=== PATIENT | female | born 1975 | race Hispanic/Latino ===

== ENCOUNTER 2019-09-21 07:59 | Outpatient (CLI) | payer BC ==
--- NOTE | 2019-09-21 11:00 | ULT ---
ULTRASOUND GREATER THAN 14 WEEKS COMPLETE: Date: 09/21/2019 HISTORY: Maternal diabetes Type II. FINDINGS: Single viable intrauterine fetus is noted in maternal right transverse lie. Placenta is anterior. Fet al heart rate is 143 bpm. Cervical length 3.8. Amniotic fluid index 22.5 cm. Visualized brain, 4 chamber heart, 3 vessel cord, stomach, bladder, kidneys, spine, and extremi ty regions are unremarkable. Biometry: BPD: 5.2 cm - 21 weeks/5 days HC: 19l.6 cm - 21 weeks/6 days AC: 17.0 cm - 22 weeks/0 days FL: 3.8 cm - 22 weeks/2 days IMPRESSION: 1. Single, viable intrauterine fetus of 22 weeks and 0 days. 2. DONNELL 01/25/2020. 3. Estimated weight 471 gm. 4. size is approximately 1 week greater than by dates. 5. Amniotic fluid index 22.5 cm. 6. Continue short-term follow-up imaging. POS: [facility]
== END 2019-09-21 08:00 | disposition home or self-care (01) ==
LOC: BICULT 07:59
PROVIDERS: ATTEND Family Medicine
DX: O24.112 Pre-existing type 2 diabetes mellitus, in pregnancy, second trimester (principal); Z3A.22 22 weeks gestation of pregnancy
CPT/HCPCS: 76805

== ENCOUNTER 2019-12-26 11:19 | Observation (INO) | payer BC ==
[2019-12-26 11:56] VITALS: BMI 29.6
--- NOTE | 2019-12-26 13:06 | ULT ---
ULTRASOUND BIOPHYSICAL PROFILE: DATE: 12/26/2019 HISTORY: 44-year-old female with maternal diabetes FINDINGS: breathin tone: 2 movement: 2 Amniotic fluid volume: 2 heart rate: 132 bpm Placenta: Anterior. STEPHANIE: 19.5 cm lie: Transverse IMPRESSION: Normal biophysical profile score of 8 out of 8, excluding the nonstress test.
[2019-12-26] MEDS ORDERED: hydrALAZINE 20 MG/ML VIAL SLOW IVP PRN (13:38)
[2019-12-26] MEDS ORDERED: Ondansetron PF 4 MG/2 ML Vial IVP PRN (13:38)
[2019-12-26] MEDS ORDERED: HumaLOG 300 UNITS/3 ML VIAL SC SCH ×4 (14:00→22:15)
[2019-12-26 14:24] LABS: Hemoglobin 11.6 g/dL (12.0-16.0); Mean Corpuscular Hemoglobin 26.6 pg (27.0-31.0); Mean Corpuscular Volume 80.4 fL (78.0-98.0); Mean Platelet Volume 8.6 fL (7.4-10.4); Platelet Count 251 thou/uL (130-400); RBC Distribution Width 13.9 % (11.5-14.5); Red Blood Cell (RBC) Count 4.37 mill/uL (4.20-5.40); White Blood Cell (WBC) Count 8.6 thou/uL (4.8-10.8)
[2019-12-26] MEDS: Betamet Acet/Betamet Na Ph 30 MG/5 ML VIAL IM SCH (14:40)
[2019-12-26 15:02] LABS: ALT (SGPT) 14 U/L (8-55); AST (SGOT) 19 U/L (5-34); Albumin 2.9 g/dL (3.5-5.0); Alkaline Phosphatase 250 U/L (40-110); Anion Gap 12 mmol/L (10-20); BUN (Urea Nitrogen) 11 mg/dL (7.0-18.7); Bilirubin, Total 0.5 mg/dL (0.2-1.2); Calc. Creatinine Clearance 133 mL/min (70-130); Calcium 8.4 mg/dL (7.8-10.44); Carbon Dioxide 19 mmol/L (22-29); Chloride 108 mmol/L (98-107); Estimated GFR-MDRD Greater than 90; Globulin 3.7 g/dL (2.4-3.5); Glucose 84 mg/dL (70-105); Potassium 4.1 mmol/L (3.5-5.1); Protein, Total 6.6 g/dL (6.0-8.3); Sodium 135 mmol/L (136-145)
[2019-12-26] MEDS: Acetaminophen 500 MG TAB PO PRN (19:28)
[2019-12-26] MEDS: HumaLOG 300 UNITS/3 ML VIAL SC SCH (19:29)
[2019-12-26] MEDS ORDERED: Insulin Glargine 10 UNITS in Pre-Filled Syringe SC SCH (21:00)
[2019-12-27] MEDS: HumaLOG 300 UNITS/3 ML VIAL SC SCH ×3 (07:31→13:55)
[2019-12-27 09:06] VITALS: TEMP 97.8
[2019-12-27] MEDS: Acetaminophen 500 MG TAB PO PRN (10:49)
[2019-12-27 12:36] VITALS: BP 137/58
[2019-12-27] MEDS: Betamet Acet/Betamet Na Ph 30 MG/5 ML VIAL IM SCH (13:34)
--- NOTE | 2019-12-28 13:38 | SS ---
DATE OF ADMISSION: 12/26/2019 DATE OF DISCHARGE: 12/27/2019 HISTORY OF PRESENT ILLNESS: This is a 44-year-old female G9, P4, at 35.3 weeks estimated gestational age, complicated by advanced maternal age, pre-existing type 2 diabetes mellitus on insulin class A on insulin, and new onset elevated blood pressures, discovered in the office on a routine visit. She was sent to Labor and Delivery for observations in light of her risk factors. PAST MEDICAL HISTORY: Type 2 diabetes mellitus, she takes the combination of Levemir twice daily and NovoLog insulin with meals, currently 10 units before meals. to this point has been uneventful. SOCIAL HISTORY: She is . She denies tobacco, alcohol, or drugs. FAMILY HISTORY: Significant for hypertension and diabetes in multiple relatives. PHYSICAL EXAMINATION: VITAL SIGNS: Blood pressure 150/90, other vital signs are stable. Afebrile. ENT: Unremarkable. LUNGS: Clear. HEART: Regular rate and rhythm. ABDOMEN: Soft and gravid. VAGINAL: Deferred. heart tones 140, moderate variability, accelerations present, no decelerations, no contractions. ASSESSMENT AND PLAN: Gestational hypertension. HOSPITAL COURSE: Sabi was admitted to Labor and Delivery, she was observed for 23 hours. Biophysical profile was 8/8. Electronic monitoring showed reassuring tones overnight. Blood pressures were stable on bedrest, improving to 120s to 130s/80s on bedrest. LABORATORY DATA: Showed normal LFTs, normal CBC, no protein in her urine. She received celestone x2 and she was discharged in good condition on 12/27/19. DISCHARGE INSTRUCTIONS: Activity, modified bedrest. Medications, none/current home medications only. Follow up 2 days in the office for a nonstress test. Job ID: [id number]
== END 2019-12-27 16:00 | disposition home health service (06) ==
LOC: L&D/OP 11:19 → L&D 13:39
PROVIDERS: ADMIT Family Medicine; ATTEND Family Medicine
DX: O24.113 Pre-existing type 2 diabetes mellitus, in pregnancy, third trimester (principal); E11.9 Type 2 diabetes mellitus without complications; O13.3 Gestational [pregnancy-induced] hypertension without significant proteinuria, third trimester; O09.523 Supervision of elderly multigravida, third trimester; Z3A.35 35 weeks gestation of pregnancy; Z79.4 Long term (current) use of insulin
CPT/HCPCS: 36415; 36416; 76819; 80053; 85027; 96372; 99285; G0378; J0702; J1815

== ENCOUNTER 2020-01-02 14:38 | Day surgery (SDC) | payer BC ==
[2020-01-02] MEDS ORDERED: hydrALAZINE 20 MG/ML VIAL SLOW IVP PRN (14:55)
[2020-01-02 15:14] VITALS: BP 131/84; TEMP 98.8; BMI 39.4
--- NOTE | 2020-01-02 15:43 | ULT ---
ULTRASOUND BIOPHYSICAL PROFILE: HISTORY: distress FINDINGS: A single live intrauterine gestation is seen. heart rate:168bpm STEPHANIE: 11.5 cm Placenta: Anterior without placenta previa OB biophysical profile: tone: 2 breathin movements: 2 Amniotic fluid: 2 The peak systolic velocities in the umbilical artery measures 65 cm/s, 62 cm/s and 25 cm/s with S-D r atios of 1.97, 1.87 and 1.41 respectively. IMPRESSION: The ultrasound biophysical profile score is 8 out of 8.
--- NOTE | 2020-01-02 16:08 | PDOC.LDHP ---
Labor and Delivery H&P Chief complaint: other (Sent from office) HPI: 44 y/o at 36w0d, patient of Dr. Lee, presents from office after a non- reassuring NST. Baseline reportedly 170-180s in clinic and sent for prolonged NST, BPP, and dopplers. Denies pain, VB, LOF, or other concerns. +FM. ROS neg for HEENT, CV, pulm, GI, , neuro, psych, skin, musculoskeletal, or constitutional symptoms other than mentioned above. OB History Details: 4 prior terms SVDs 4 SABs Current complications: pregestational diabetes, gestational hypertension Current medications: pre- vitamins, other (Levemir 10qAM/15 qPM, Novolog 10 qAC, Metformin 500mg BID) Previous surgical history: dilation and curettage Allergies/Adverse Reactions: Allergies Allergy/AdvReac Type Severity Reaction Status Date / Time No Known Allergies Allergy Verified 10/09/19 04:56 Social history: none - Physical Exam Vital signs reviewed and normal: yes General: NAD, resting Lungs: nonlabored breathing Abdomen: gravid Extremeties: no edema FHT: category 2 (160s, mod variability,+ accels, no decels) [place] contractions every: None - Assessment 44 y/o at 36w0d with BPP 02/24, NST with baseline returned to normal after prolonged monitoring. UA dopplers wnl. - Plan -: D/c home with precautions. Will return on for repeat NST/BPP.
== END 2020-01-02 17:25 ==
LOC: L&D/OP 14:38
PROVIDERS: ATTEND Family Medicine
DX: O36.8330 Maternal care for abnormalities of the fetal heart rate or rhythm, third trimester, not applicable or unspecified (principal); O24.414 Gestational diabetes mellitus in pregnancy, insulin controlled; O13.3 Gestational [pregnancy-induced] hypertension without significant proteinuria, third trimester; O09.523 Supervision of elderly multigravida, third trimester; Z3A.36 36 weeks gestation of pregnancy; Z79.4 Long term (current) use of insulin
CPT/HCPCS: 76819; 93975

== ENCOUNTER 2020-01-05 14:30 | Inpatient (IN) | payer BC, OTHER ==
--- NOTE | 2020-01-05 15:38 | ULT ---
US BIOPHYSICAL PROFILE AND UMBILICAL ARTERY ULTRASOUND: 01/05/2020 2:59 PM CLINICAL HISTORY: Size small for dates. COMPARISON: 01/02/2020 FINDINGS: heart rate: 136 bpm. STEPHANIE: 5.2 cm Biophysical profile: 8 of 8 An umbilical artery ultrasound was performed showing persistent diastolic flow within the umbilical a rteries and normal systolic to diastolic ratios. IMPRESSION: 1. Normal biophysical profile 2. Normal umbilical artery ultrasound
[2020-01-05 16:02] VITALS: BMI 38.4
[2020-01-05] MEDS ORDERED: Acetaminophen 500 MG TAB PO PRN (16:57)
[2020-01-05] MEDS ORDERED: Promethazine HCl 25 MG/ML VIAL IM PRN (16:57)
[2020-01-05] MEDS ORDERED: hydrALAZINE 20 MG/ML VIAL SLOW IVP PRN (16:57)
[2020-01-05] MEDS ORDERED: Ondansetron PF 4 MG/2 ML Vial IVP PRN (16:57)
[2020-01-05] MEDS ORDERED: HumaLOG 300 UNITS/3 ML VIAL SC SCH (17:00)
[2020-01-05] MEDS: Lactated Ringer's 1,000 ML IV SCH ×2 (17:26→21:35)
[2020-01-05] MEDS ORDERED: Insulin Glargine 12 UNITS in Pre-Filled Syringe 1 EACH SC SCH (21:00)
[2020-01-06] MEDS: Lactated Ringer's 1,000 ML IV SCH (05:52)
[2020-01-06] MEDS ORDERED: Dextrose 5%-Lactated Ringers 1,000 ML IV SCH (06:30)
[2020-01-06 07:41] LABS: Hemoglobin 12.9 g/dL (12.0-16.0); Mean Corpuscular HGB CONC 32.3 g/dL (32.0-36.0); Mean Corpuscular Hemoglobin 26.6 pg (27.0-31.0); Mean Corpuscular Volume 82.3 fL (78.0-98.0); Mean Platelet Volume 9.6 fL (7.4-10.4); Platelet Count 190 thou/uL (130-400); RBC Distribution Width 14.6 % (11.5-14.5); Red Blood Cell (RBC) Count 4.86 mill/uL (4.20-5.40); White Blood Cell (WBC) Count 6.8 thou/uL (4.8-10.8)
[2020-01-06 07:53] LABS: ALT (SGPT) 45 U/L (8-55); AST (SGOT) 61 U/L (5-34); Albumin 3.1 g/dL (3.5-5.0); Alkaline Phosphatase 357 U/L (40-110); Anion Gap 20 mmol/L (10-20); BUN (Urea Nitrogen) 15 mg/dL (7.0-18.7); Bilirubin, Total 0.4 mg/dL (0.2-1.2); Calc. Creatinine Clearance 96 mL/min (70-130); Carbon Dioxide 17 mmol/L (22-29); Chloride 106 mmol/L (98-107); Estimated GFR-MDRD 63; Globulin 3.4 g/dL (2.4-3.5); Protein, Total 6.5 g/dL (6.0-8.3); Sodium 138 mmol/L (136-145)
[2020-01-06 07:56] LABS: Glucose 32 mg/dL (70-105)
[2020-01-06 08:10] LABS: HBSAg Index 0.14 S/CO (0-0.99); Hep B Surf Ag Non-Reactive S/CO (NonReactive)
[2020-01-06 08:11] LABS: Syphilis Antibody Nonreactive (Nonreactive); Syphilis Antibody Index 0.18 S/CO (<1.00 Non-Reactive)
--- NOTE | 2020-01-06 14:27 | ULT ---
US BIOPHYSICAL PROFILE AND UMBILICAL ARTERY ULTRASOUND: 01/05/2020 2:59 PM CLINICAL HISTORY: Size small for dates. COMPARISON: 01/02/2020 FINDINGS: heart rate: 136 bpm. STEPHANIE: 5.2 cm Biophysical profile: 8 of 8 An umbilical artery ultrasound was performed showing persistent diastolic flow within the umbilical a rteries and normal systolic to diastolic ratios. IMPRESSION: 1. Normal biophysical profile 2. Normal umbilical artery ultrasound Transcribed Date/Time: 01/06/2020 2:26 PM
--- NOTE | 2020-01-14 22:29 | HP ---
HISTORY OF PRESENT ILLNESS: This is a 44-year-old female, G9, P4, at 36 weeks 4 days estimated gestational age with a final EDC of 01/30/2020, who presented to Labor and Delivery today for routine biophysical profile and monitoring for her multiple complications, which include advanced maternal age, pregestational type 2 diabetes mellitus, gestational hypertension. During the ultrasounds, she was noted to have an STEPHANIE of 5.2 and borderline oligohydramnios. She was also noted to be in breech presentation. A nonstress test at that time was also performed and was reassuring. She was given the options of proceeding with a on the day of admission or she could attempt p.o. hydration, and if there was an increase in the amniotic fluid level, external cephalic version could be attempted day after admission. If p.o. hydration did not increase, then a on the next day was also presented as a possibility. Since she had given vaginally 4 times, she did not want to proceed with an immediate and elected to proceed with hydration overnight and followup ultrasound next day. complications as noted above, advanced maternal age. She is a type 2 pregestational diabetic who is on scheduled Levemir b.i.d. and NovoLog with each meal. She has recently diagnosed a week ago with gestational hypertension. She is also GBS positive. PAST MEDICAL HISTORY: Type 2 diabetes mellitus. Previous to she was untreated. PAST SURGICAL HISTORY: No previous surgeries. FAMILY HISTORY: Significant for type 2 diabetes in multiple relatives. CURRENT MEDICATIONS: 1. vitamins. 2. Iron. 3. Levemir 10 units b.i.d. 4. NovoLog 10 to 12 units q.a.c. ALLERGIES: SHE HAS NO KNOWN DRUG ALLERGIES. SOCIAL HISTORY: She denies tobacco, alcohol, or drugs. PHYSICAL EXAMINATION: VITAL SIGNS: On admission, normal blood pressure on bed rest. Her other vital signs were stable. She was afebrile. ENT: Unremarkable. HEART AND LUNGS: Clear. Reflexes were 1+ bilaterally. heart tones at a baseline of 140 with moderate variability. Accelerations were present and no decelerations were seen. HOSPITAL COURSE: Ms. Daniels was admitted to Labor and Delivery. Routine admission labs were ordered. She was began on IV rehydration. Her BPP was 8/8. Her NST added to it 10/10. The next day, I performed a bedside ultrasound, which revealed the in cephalic presentation and an STEPHANIE of 10.2, much improved. Since she was scheduled for induction of labor in 3 days at 37 weeks, the decision was made to allow her to go home on bed rest and return in 2 days for cervical ripening and induction of labor. Job ID: [id number]
== END 2020-01-06 13:14 | disposition home or self-care (01) | DRG 832 ==
LOC: L&D/OP 14:30 → L&D 16:57
PROVIDERS: ADMIT Family Medicine; ATTEND Family Medicine
DX: O24.313 Unspecified pre-existing diabetes mellitus in pregnancy, third trimester (principal); O41.03X0 Oligohydramnios, third trimester, not applicable or unspecified; Z3A.36 36 weeks gestation of pregnancy; O13.3 Gestational [pregnancy-induced] hypertension without significant proteinuria, third trimester; E11.9 Type 2 diabetes mellitus without complications; Z79.4 Long term (current) use of insulin
CPT/HCPCS: 36415; 36416; 59025; 76819; 80053; 85027; 86780; 86850; 86900; 86901; 87340; 87635; 93975; 99283; 99285; J1815; U0003

== ENCOUNTER 2020-01-08 18:00 | Inpatient (IN) | payer BC, OTHER ==
[2020-01-08] MEDS ORDERED: Ondansetron PF 4 MG/2 ML Vial IVP PRN (22:04)
[2020-01-08] MEDS ORDERED: Carboprost 250 MCG/ML AMP IM PRN (22:04)
[2020-01-08] MEDS ORDERED: Misoprostol 200 MCG TAB PR PRN (22:04)
[2020-01-08] MEDS ORDERED: Promethazine HCl 25 MG/ML VIAL IM PRN (22:04)
[2020-01-08] MEDS ORDERED: HYDROcodone/Acetaminophen 5/325 mg Tablet PO PRN (22:04)
[2020-01-08] MEDS ORDERED: Lidocaine 1% (PF) 30 ML VIAL SC PRN (22:04)
[2020-01-08] MEDS ORDERED: Ibuprofen 800 MG TAB PO PRN (22:04)
[2020-01-08] MEDS ORDERED: Butorphanol Tartrate 1 MG/ML VIAL SLOW IVP PRN (22:04)
[2020-01-08] MEDS ORDERED: Diphenoxylate HCl/Atropine Tablet PO PRN (22:04)
[2020-01-08] MEDS ORDERED: hydrALAZINE 20 MG/ML VIAL SLOW IVP PRN (22:04)
[2020-01-08] MEDS ORDERED: NS w/ Oxytocin 10 units 500 ML IV SCH (22:15)
[2020-01-08 22:44] VITALS: BMI 30.5
[2020-01-08 23:12] LABS: Hemoglobin 13.1 g/dL (12.0-16.0); Mean Corpuscular HGB CONC 32.6 g/dL (32.0-36.0); Mean Corpuscular Hemoglobin 25.9 pg (27.0-31.0); Mean Corpuscular Volume 79.6 fL (78.0-98.0); Mean Platelet Volume 10.3 fL (7.4-10.4); Platelet Count 217 thou/uL (130-400); Red Blood Cell (RBC) Count 5.03 mill/uL (4.20-5.40); White Blood Cell (WBC) Count 7.3 thou/uL (4.8-10.8)
[2020-01-08] MEDS ORDERED: Penicillin G Potassium 5 MILL.UNITS VIAL ONE (23:27)
[2020-01-08 23:37] LABS: ALT (SGPT) 120 U/L (8-55); AST (SGOT) 213 U/L (5-34); Albumin 2.7 g/dL (3.5-5.0); Alkaline Phosphatase 376 U/L (40-110); Anion Gap 18 mmol/L (10-20); BUN (Urea Nitrogen) 15 mg/dL (7.0-18.7); Bilirubin, Total 0.5 mg/dL (0.2-1.2); Calc. Creatinine Clearance 69 mL/min (70-130); Calcium 7.7 mg/dL (7.8-10.44); Carbon Dioxide 14 mmol/L (22-29); Chloride 107 mmol/L (98-107); Estimated GFR-MDRD 43; Globulin 4.9 g/dL (2.4-3.5); Glucose 158 mg/dL (70-105); Potassium 5.1 mmol/L (3.5-5.1); Protein, Total 7.6 g/dL (6.0-8.3); Sodium 134 mmol/L (136-145)
[2020-01-08] MEDS: Lactated Ringer's 1,000 ML IV SCH (23:38)
[2020-01-08 23:52] LABS: Syphilis Antibody Nonreactive (Nonreactive); Syphilis Antibody Index 0.18 S/CO (<1.00 Non-Reactive)
[2020-01-09 00:19] LABS: HBSAg Index 0.39 S/CO (0-0.99); Hep B Surf Ag Non-Reactive S/CO (NonReactive)
[2020-01-09] MEDS ORDERED: Misoprostol 100 MCG TAB VAG SCH (02:00)
[2020-01-09] MEDS: Penicillin G 2.5 MILL.units 50 ML ONE ×2 (04:14→09:40)
[2020-01-09] MEDS: NS w/ Oxytocin 10 units 500 ML IV SCH ×2 (05:29→08:33)
[2020-01-09] MEDS ORDERED: Fentanyl 4 mcg/Bup 0.1% Cadd 100 ML ONE (07:24)
[2020-01-09] MEDS ORDERED: Magnesium Sulfate 20 gm/500 ml 20 GM/500 ML BAG ONE ×2 (07:35→15:58)
[2020-01-09] MEDS: Lactated Ringer's 1,000 ML IV SCH (08:33)
[2020-01-09] MEDS ORDERED: Lactated Ringer's 500 ML IV PRN (08:40)
[2020-01-09] MEDS ORDERED: Naloxone HCl 0.4 mg/ml Vial IVP PRN ×2 (08:40)
[2020-01-09] MEDS ORDERED: Promethazine HCl 25 MG/ML VIAL IM PRN ×2 (08:40→16:35)
[2020-01-09] MEDS ORDERED: diphenhydrAMINE 50 MG/ML VIAL IVP PRN (08:40)
[2020-01-09] MEDS ORDERED: EPHEDRINE 25 MG/5 ML SYRINGE SLOW IVP PRN (08:40)
[2020-01-09] MEDS ORDERED: Ondansetron PF 4 MG/2 ML Vial IVP PRN ×2 (08:40→16:35)
[2020-01-09] MEDS ORDERED: Communication Order-Pharmacy FS SCH (08:45)
[2020-01-09] MEDS ORDERED: Fentanyl 4 mcg/Bupivacaine 0.1% Cassette 100 ML EPIDURAL SCH (08:45)
[2020-01-09] MEDS ORDERED: Penicillin G 2.5 MILL.units 50 ML ONE (09:30)
[2020-01-09] MEDS ORDERED: Misoprostol 200 MCG TAB ONE (11:18)
[2020-01-09] MEDS: NS / Oxytocin 40 units/1000ml 1,000 ML IV PRN ×2 (11:46→12:55)
[2020-01-09 12:22] LABS: Base Excess (BEa) -17.1 mEq/L (-2.0 to +3.0)
[2020-01-09 12:24] LABS: Actual Bicarbonate (HCO3v) 15 mEq/L (22-28)
[2020-01-09] MEDS: hydrALAZINE 20 MG/ML VIAL SLOW IVP PRN ×2 (13:07→13:49)
[2020-01-09] MEDS: Acetaminophen 325 MG TAB PO PRN (13:43)
[2020-01-09] MEDS ORDERED: Labetalol HCl 100 MG/20 ML VIAL ONE (14:04)
--- NOTE | 2020-01-09 14:06 | PDOC.EVN ---
Event Note - Event Note Event Note: asked to place order for dr lee 40mg iv x1 for severe pressures. Also asked to evaluate pt for deviating uterus, ppd0 on evaluation fundus is firm at umbulicus and midline. Dr Lee updated 221901/09/20 fsbs 333 lantus 10units x1 humolog 20units x1 ordered at his request.
[2020-01-09] MEDS ORDERED: Lisinopril/Hydrochlorothiazide 10 mg/12.5 mg Tablet PO SCH (16:00)
[2020-01-09] MEDS ORDERED: HYDROcodone/Acetaminophen 5/325 mg Tablet PO PRN ×2 (16:35)
[2020-01-09] MEDS ORDERED: diphenhydrAMINE 25 MG CAP PO PRN (16:35)
[2020-01-09] MEDS ORDERED: Milk Of Magnesia 30 ML UDCUP PO PRN (16:35)
[2020-01-09] MEDS ORDERED: NS / Oxytocin 40 units/1000ml 1,000 ML IV SCH (16:35)
[2020-01-09] MEDS ORDERED: hydrALAZINE 20 MG/ML VIAL SLOW IVP PRN (16:35)
[2020-01-09] MEDS ORDERED: Bisacodyl 10 MG SUPP PR PRN (16:35)
[2020-01-09] MEDS ORDERED: Lanolin Ointment 7 GM TUBE TOP PRN (16:35)
[2020-01-09] MEDS ORDERED: Calcium Gluconate 4.6 MEQ in Sodium Chloride 0.9% 100 ML IVPB PRN (17:57)
[2020-01-09] MEDS ORDERED: Magnesium Sulfate 20 gm/500 ml 20 GM/500 ML BAG IVPB SCH (18:00)
[2020-01-09] MEDS: Ferrous Sulfate 325 MG TAB PO SCH (18:45)
[2020-01-09] MEDS: metFORMIN 500 MG TAB PO SCH (19:51)
[2020-01-09 20:41] LABS: ALT (SGPT) 99 U/L (8-55); AST (SGOT) 123 U/L (5-34); Albumin 2.3 g/dL (3.5-5.0); Alkaline Phosphatase 301 U/L (40-110); Anion Gap 15 mmol/L (10-20); BUN (Urea Nitrogen) 12 mg/dL (7.0-18.7); Bilirubin, Total 0.4 mg/dL (0.2-1.2); Calc. Creatinine Clearance 69 mL/min (70-130); Calcium 6.4 mg/dL (7.8-10.44); Carbon Dioxide 14 mmol/L (22-29); Chloride 104 mmol/L (98-107); Estimated GFR-MDRD 43; Globulin 3.4 g/dL (2.4-3.5); Glucose 265 mg/dL (70-105); Potassium 3.8 mmol/L (3.5-5.1); Protein, Total 5.7 g/dL (6.0-8.3); Sodium 129 mmol/L (136-145)
[2020-01-09] MEDS: Docusate Calcium (SURFAK) 240 MG CAP PO SCH (21:43)
[2020-01-09] MEDS: Ibuprofen 800 MG TAB PO SCH (21:43)
[2020-01-09] MEDS ORDERED: Labetalol 100 MG TAB PO SCH (22:00)
[2020-01-09] MEDS ORDERED: Dextrose 50% Abboject 50 ML SYRINGE IVP PRN (22:23)
[2020-01-09] MEDS ORDERED: Dextrose 5% in Water 1,000 ML IV PRN (22:23)
[2020-01-09] MEDS ORDERED: HumaLOG 300 UNITS/3 ML VIAL SC SCH (22:30)
[2020-01-09] MEDS ORDERED: Insulin Glargine 10 UNITS in Pre-Filled Syringe 1 EACH SC SCH (22:30)
[2020-01-10] MEDS ORDERED: Labetalol 100 MG TAB PO SCH
[2020-01-10 01:04] VITALS: BP 103/55
[2020-01-10 02:10] LABS: Hemoglobin 11.7 g/dL (12.0-16.0); Mean Corpuscular HGB CONC 32.8 g/dL (32.0-36.0); Mean Corpuscular Hemoglobin 26.2 pg (27.0-31.0); Mean Corpuscular Volume 79.8 fL (78.0-98.0); Mean Platelet Volume 9.9 fL (7.4-10.4); Platelet Count 206 thou/uL (130-400); Red Blood Cell (RBC) Count 4.46 mill/uL (4.20-5.40)
[2020-01-10 02:38] LABS: Hemoglobin A1c 7.1 % (4.0-6.0)
[2020-01-10] MEDS: Ibuprofen 800 MG TAB PO SCH ×3 (06:05→21:10)
[2020-01-10] MEDS: Docusate Calcium (SURFAK) 240 MG CAP PO SCH ×2 (08:39→21:10)
[2020-01-10] MEDS: Prenatal Vitamin 1 TAB PO SCH (08:39)
[2020-01-10] MEDS: Ferrous Sulfate 325 MG TAB PO SCH ×2 (08:40→17:19)
[2020-01-10] MEDS: metFORMIN 500 MG TAB PO SCH ×2 (08:40→17:38)
[2020-01-10] MEDS: Lactated Ringer's 1,000 ML IV SCH (10:30)
[2020-01-10 10:52] LABS: #Lymphocytes 2.1 thou/uL (1.20-3.40); #Monocytes 0.3 thou/uL (0.11-0.59); #Neutrophils 8.2 thou/uL (1.40-6.50); %Basophils 0.2 % (0.0-1.0); %Eosinophils 0.3 % (0.0-10.0); %Monocytes 3.1 % (0.0-10.0); %Neutrophils 76.4 % (42.0-75.0); Hemoglobin 11.9 g/dL (12.0-16.0); Mean Corpuscular HGB CONC 32.6 g/dL (32.0-36.0); Mean Corpuscular Hemoglobin 26.2 pg (27.0-31.0); Mean Corpuscular Volume 80.5 fL (78.0-98.0); Mean Platelet Volume 9.4 fL (7.4-10.4); Platelet Count 207 thou/uL (130-400); RBC Distribution Width 14.9 % (11.5-14.5); Red Blood Cell (RBC) Count 4.52 mill/uL (4.20-5.40); White Blood Cell (WBC) Count 10.7 thou/uL (4.8-10.8)
[2020-01-10 11:21] LABS: ALT (SGPT) 88 U/L (8-55); AST (SGOT) 93 U/L (5-34); Albumin 2.4 g/dL (3.5-5.0); Alkaline Phosphatase 287 U/L (40-110); Anion Gap 13 mmol/L (10-20); BUN (Urea Nitrogen) 11 mg/dL (7.0-18.7); Bilirubin, Total 0.3 mg/dL (0.2-1.2); Calc. Creatinine Clearance 82 mL/min (70-130); Calcium 6.4 mg/dL (7.8-10.44); Carbon Dioxide 19 mmol/L (22-29); Chloride 105 mmol/L (98-107); Estimated GFR-MDRD 52; Globulin 3.7 g/dL (2.4-3.5); Glucose 114 mg/dL (70-105); Potassium 4.5 mmol/L (3.5-5.1); Protein, Total 6.1 g/dL (6.0-8.3); Sodium 132 mmol/L (136-145)
[2020-01-10] MEDS ORDERED: HumaLOG 300 UNITS/3 ML VIAL SC SCH (17:00)
[2020-01-10] MEDS ORDERED: Insulin Glargine 10 UNITS in Pre-Filled Syringe 1 EACH SC SCH (21:00)
[2020-01-10 21:28] VITALS: TEMP 97.6
[2020-01-11] MEDS: Ibuprofen 800 MG TAB PO SCH (05:39)
[2020-01-11 07:35] LABS: ALT (SGPT) 70 U/L (8-55); AST (SGOT) 61 U/L (5-34); Albumin 2.5 g/dL (3.5-5.0); Alkaline Phosphatase 273 U/L (40-110); Anion Gap 14 mmol/L (10-20); BUN (Urea Nitrogen) 17 mg/dL (7.0-18.7); Bilirubin, Total 0.3 mg/dL (0.2-1.2); Calc. Creatinine Clearance 91 mL/min (70-130); Calcium 6.7 mg/dL (7.8-10.44); Carbon Dioxide 19 mmol/L (22-29); Chloride 109 mmol/L (98-107); Estimated GFR-MDRD 59; Globulin 3.8 g/dL (2.4-3.5); Glucose 69 mg/dL (70-105); Potassium 4.5 mmol/L (3.5-5.1); Protein, Total 6.3 g/dL (6.0-8.3); Sodium 137 mmol/L (136-145)
[2020-01-11] MEDS: Ferrous Sulfate 325 MG TAB PO SCH (08:08)
[2020-01-11] MEDS: metFORMIN 500 MG TAB PO SCH (08:08)
[2020-01-11] MEDS: Docusate Calcium (SURFAK) 240 MG CAP PO SCH (08:08)
[2020-01-11] MEDS: Prenatal Vitamin 1 TAB PO SCH (08:08)
[2020-01-11] MEDS: Acetaminophen 325 MG TAB PO PRN (08:20)
[2020-01-12 12:16] LABS: SARS-CoV-2 MS2 Positive; SARS-CoV-2 N Gene Positive; SARS-CoV-2 S Gene Positive; SARS-CoV-2 orf1ab Positive
--- NOTE | 2020-01-13 13:24 | DIS ---
DATE OF ADMISSION: 01/08/2020 DATE OF DISCHARGE: 01/11/2020 PRINCIPAL DIAGNOSES: 1. 37 weeks. 2. Advanced maternal age, delivered. 3. Pre-existing type 2 diabetes mellitus. 4. Preeclampsia with severe features. 5. HELLP syndrome, delivered. 6. COVID positive. 7. GBS positive. 8. Shoulder dystocia. PROCEDURES: 1. NST. 2. Ultrasound. 3. Biophysical profile. 4. Umbilical artery Dopplers. INTRAPARTUM PROCEDURES: 1. Spontaneous vaginal delivery. 2. Respiratory isolation. PROCEDURES: Magnesium sulfate x24 hours. COMPLICATIONS: Shoulder dystocia. DISCHARGE INSTRUCTIONS: 1. Activities: As tolerated, recommend quarantine x10 days. 2. Diet: 2000 calorie ADA/carbohydrate restricted diet. 3. Medications: Lisinopril 10 mg daily, metformin 1000 mg b.i.d., NovoLog 5 units q.a.c. 4. Instructions: Routine. 5. Followup: Two weeks at [facility]. Job ID: [id number]
== END 2020-01-11 16:00 | disposition home or self-care (01) | DRG 805 ==
LOC: L&D 21:57
PROVIDERS: ADMIT Family Medicine; ATTEND Family Medicine
PROC: 8E0ZXY6 Isolation (ICD-10-PCS; 2020-01-08)
PROC: 10E0XZZ Delivery of Products of Conception, External Approach (ICD-10-PCS; principal; 2020-01-09)
PROC: 10907ZC Drainage of Amniotic Fluid, Therapeutic from Products of Conception, Via Natural or Artificial Opening (ICD-10-PCS; 2020-01-09)
PROC: 3E033VJ Introduction of Other Hormone into Peripheral Vein, Percutaneous Approach (ICD-10-PCS; 2020-01-09)
PROC: 3E0P7VZ Introduction of Hormone into Female Reproductive, Via Natural or Artificial Opening (ICD-10-PCS; 2020-01-09)
DX: O13.4 Gestational [pregnancy-induced] hypertension without significant proteinuria, complicating childbirth (principal); U07.1 COVID-19; Z37.0 Single live birth; O98.52 Other viral diseases complicating childbirth; O24.424 Gestational diabetes mellitus in childbirth, insulin controlled; O99.824 Streptococcus B carrier state complicating childbirth; O69.81X0 Labor and delivery complicated by cord around neck, without compression, not applicable or unspecified; O66.0 Obstructed labor due to shoulder dystocia; O77.0 Labor and delivery complicated by meconium in amniotic fluid; O99.52 Diseases of the respiratory system complicating childbirth; J98.8 Other specified respiratory disorders; Z3A.37 37 weeks gestation of pregnancy
CPT/HCPCS: 36415; 36416; 51702; 80053; 82570; 82805; 83036; 83735; 84156; 85027; 86780; 86850; 86900; 86901; 87340; 87635; 88307; J0360; J1815; J2540; J2590; J3475; J3490; U0003

== ENCOUNTER 2020-11-05 16:13 | Emergency (ER) | payer BC, SELFPAY ==
[2020-11-06 06:59] LABS: SARS-CoV-2 PCR by NAA Not Detected (NotDetected)
== END 2020-11-05 17:25 | disposition home or self-care (01) ==
LOC: ERS 16:13
DX: Z20.822 Contact with and (suspected) exposure to COVID-19 (principal)
CPT/HCPCS: 87635; 99283; U0003; U0005